=== PATIENT | female | born 1945 | race Caucasian/White ===

== ENCOUNTER → 2017-08-14 13:30 | Outpatient (CLI) | payer MEDICARE, SELFPAY ==
[2017-07-24 13:28] VITALS: TEMP 36.2
[2017-08-14 14:10] LABS: Add Manual Diff / Slide Review NO; Basophils Percent Auto 1.9 % (0-2); Eosinophils Percent Auto 4.3 % (2-4); Hematocrit 36.3 % (36-46); Hemoglobin 12.5 g/dL (12.0-16.0); Lymphocytes Percent Auto 24.3 % (25-40); Mean Corpuscular HGB Conc 34.5 % (30-36); Mean Corpuscular Volume 98.8 fL (80-100); Neutrophils Absolute Auto 1600 /uL (3000-5900); Neutrophils Percent Auto 59.5 % (50-75); Platelet Count 208 X10^3/uL (150-400); Red Blood Cell Count 3.67 X10^6/uL (4.0-5.2); Red Cell Distribution Width 13.8 % (11.6-14.8); White Blood Cell Count 2.7 X10^3/uL (4.5-11.0)
[2017-08-14 14:28] LABS: Alanine Aminotransferase 25 IU/L (9-52); Albumin 3.9 g/dL (3.5-5.0); Albumin Globulin Ratio 0.7 (1.0-2.8); Alkaline Phosphatase 50 U/L (38-126); Aspartate Aminotransferase 20 IU/L (14-36); BUN Creatinine Ratio 18.8 (6-22); Bilirubin Total 0.4 mg/dL (0.2-1.3); Calcium 10.3 mg/dL (8.4-10.2); Estimated Glomerular Filt Rate > 60.0 mL/min (>60); Globulin 5.5 g/dL (1.7-4.1); Glucose 104 mg/dL (80-110); HEMOLYSIS < 15 (0-50); Potassium 3.3 mmol/L (3.4-5.1); Sodium 141 mmol/L (137-145); Total Protein 9.4 g/dL (6.3-8.2)
[2017-08-20 15:25] LABS: Abnormal Protein Band 1 3.3 g/dL (NONE DETECTED); Albumin 3.8 g/dL (3.8-4.8); Alpha 1 Globulin 0.3 g/dL (0.2-0.3); Alpha 2 Globulin 0.6 g/dL (0.5-0.9); Beta 1 Globulin 0.3 g/dL (0.4-0.6); Gamma Globulin 3.5 g/dL (0.8-1.7); Protein, Total 8.7 g/dL (6.1-8.1)
[2017-08-21 13:00] LABS: Free Kappa Light Chain 13.6 mg/L (3.3-19.4)
[2017-08-26 14:13] LABS: Beta-2-Microglobulin 2.45 mg/L (< 2.52)
== END ==
PROVIDERS: Family Provider Family Medicine; PCP Family Medicine; Visit Provider Internal Medicine Hematology & Oncology
DX: C90.11 Plasma cell leukemia in remission (principal)
CPT/HCPCS: 80053; 82232; 83883; 84155; 84165; 85025

== ENCOUNTER → 2017-09-05 10:24 | Outpatient (CLI) | payer MEDICARE, SELFPAY ==
--- NOTE | 2017-09-05 10:26 | DI.RAD.S_ITS ---
PROCEDURE: XR BONE SURVEY INDICATIONS: 72 year-old female with multiple myeloma. TECHNIQUE: Multiple views obtained of various bony structures as described below. COMPARISON: [facility], , XR BONE SURVEY COMP, 08/27/2016, 19:54. FINDINGS: Skull (lateral): Several geographic lucent lesions near the vertex and posterior parietal calvarium appear decreased in numbers. Thoracic spine (AP, lateral): No suspicious bony lesions. Nonacute T6 vertebral body compression fracture is unchanged, with 74% height loss. There is new T10 vertebral body compression fracture, with 52% height loss. Nonacute healed lateral left eighth fracture is now apparent, with bridging bony callus. Lumbar spine (AP, lateral): No suspicious bony lesions. No vertebral body compression fractures. There is multilevel lumbar spine disc degeneration as before, with mild dextroscoliosis. Cholecystectomy clips are present. Pelvis (AP): No suspicious bony lesions. No fractures. Soft tissue heterotopic ossification is again noted adjacent to the left lesser trochanter, consistent with remote left iliopsoas tendon injury. Right and left humeri (AP): No suspicious bony lesions. No fractures. Overlying soft tissues appear unremarkable. Right and left femurs (AP): Several geographic lucent lesions in the femoral shaft with endosteal scalloping do not appear significantly changed. No new suspicious bony lesions. No fractures. Overlying soft tissues appear unremarkable. IMPRESSION: 1. The nonacute T6 vertebral body compression fracture is unchanged. New but nonacute T10 vertebral body compression fracture, with moderate height loss. Additional nonacute lateral left eighth rib fracture also appears new. 2. Several lucent lesions within the right femoral shaft appear unchanged in overall numbers and sizes. Additional geographic lucent lesions in the calvarium appear decreased in number and conspicuity. 3. Soft tissue heterotopic ossification adjacent to the left lesser trochanter, consistent with remote left iliopsoas tendon injury. Dictated by: Rajinder Martinez M.D. on 09/05/2017 at 13:26 Approved by: Rajinder Martinez M.D. on 09/05/2017 at 13:35
--- NOTE | 2017-09-05 10:26 | DI.ECHO.S_ITS ---
[facility] +---------+ : : [address] : : : : [id number] : : : : Phone: [phone] Echocardiogram Report + + :Name: HOMA EPSTEIN Study Date: 09/05/2017 Height: 63 in : :[facility] Exam Location: [facility] Weight: 194 lb : : Gender: Female BSA: 1.9 m2 : :: 1945 Age: 72 yrs BP: 142/88 mmHg: :Reason For Study: MULTIPLE MYELOMA : : Performed By: Janel Nolasco : :Referring: MIRANDA POWER : + + Interpretation Summary 1. Upper limits of normal left ventricular size with normal wall thickness and an estimated EF of 45 to 50% 2. Normal right ventricular size and systolic function. 3. No evidence for significant valvular pathology Compared to the previous study of 2017, the EF appears improved. Procedure: A two-dimensional transthoracic echocardiogram with color flow and Doppler was performed. The study quality was technically adequate. Comparison is made with the echocardiogram of 08/22/2016. The patient was in normal sinus rhythm during the exam. Left Ventricle: The left ventricle is borderline dilated. Left ventricular wall thickness is normal. The ejection fraction is estimated to be 45-50%. Right Ventricle: The right ventricle is normal in size and function. Atria: Both atria are normal in size. There is no Doppler evidence for an interatrial shunt. Mitral Valve: The mitral valve leaflets appear thickened, but open well. There is trace mitral regurgitation. Aortic Valve: The aortic valve is trileaflet. The aortic valve opens well. There is mild aortic valve sclerosis. There is trace aortic regurgitation. Tricuspid Valve: The tricuspid valve leaflets are thin and pliable. There is a trace or physiologic amount of tricuspid regurgitation. The right ventricular systolic pressure is estimated at 28 mmHg assuming a right atrial pressure of 3 mm Hg. Pulmonic Valve: The pulmonic valve is normal in structure and function. There is a trace or physiologic amount of pulmonic regurgitation. Great Vessels: The aortic root is normal size. The ascending aorta is mildly enlarged. The aortic arch is mildly enlarged. The pulmonary artery is normal size. The IVC is of normal diameter and collapses greater than 50% with a sniff. This suggests a low right atrial pressure of 3 mm Hg. Pericardium/ Pleura There is no pericardial effusion. There is no pleural effusion. MMode/2D Measurements & Calculations LVIDd: 5.3 cm LVOT diam: 2.1 cm LVIDs: 3.5 cm Ao root diam: 3.4 cm FS: 34.3 % asc Aorta Diam: 3.8 cm EPSS: 0.66 cm Ao Arch Diam (Prox Trans): 3.1 cm IVSd: 0.76 cm LVPWd: 0.74 cm LV samuels. diameter/BSA (cm/m^2): 2.8 LV sys. diameter/BSA (cm/m^2): 1.8 LA A2 area: 20.6 cm2 RA long axis: 4.4 cm LA A4 area: 14.0 cm2 RA area: 15.6 cm2 LA length (vol): 4.8 cm RA vol: 47.7 ml LA vol: 51.0 ml RA : 25.0 ml/m2 LA vol index: 26.7 ml/m2 IVC diam: 1.4 cm RVD1 (basal): 3.2 cm LVAd ap4: 21.6 cm2 TAPSE: 2.0 cm LVAs ap4: 27.4 cm2 LVLs ap4: 6.5 cm LVAd ap2: 25.3 cm2 LVLd ap2: 7.2 cm Doppler Measurements & Calculations Ao V2 max: 136.5 cm/sec LVOT Max Gael: 86.3 cm/sec Ao V2 mean: 103.1 cm/sec LV V1 max P.0 mmHg Ao max P.5 mmHg LV V1 VTI: 14.8 cm Ao mean P.5 mmHg KASANDRA(I,D): 2.4 cm2 Ao V2 VTI: 22.3 cm KASANDRA(V,D): 2.3 cm2 sev ratio: 0.66 KASANDRA indexed to BSA (cm^2/m^2): 1.3 MV E max gael: 38.1 cm/sec TR max gael: 246.8 cm/sec MV A max gael: 81.2 cm/sec TR max P.4 mmHg MV E/A: 0.47 PA V2 max: 75.8 cm/sec Med Peak E' Gael: 3.6 cm/sec PA V2 mean: 49.2 cm/sec E/E' med: 10.4 PA mean P.1 mmHg Lat Peak E' Gael: 3.6 cm/sec E/E' lat: 10.4 E/e' average: 10.4 MV dec time: 0.25 sec Reading Physician:SERGE
[2017-09-05 12:24] LABS: Add Manual Diff / Slide Review NO; Basophils Percent Auto 2.4 % (0-2); Eosinophils Percent Auto 4.1 % (2-4); Hematocrit 36.2 % (36-46); Hemoglobin 12.5 g/dL (12.0-16.0); Mean Corpuscular HGB Conc 34.5 % (30-36); Mean Corpuscular Volume 98.6 fL (80-100); Monocytes Percent Auto 12.4 % (3-14); Neutrophils Absolute Auto 1700 /uL (3000-5900); Neutrophils Percent Auto 56.1 % (50-75); Platelet Count 230 X10^3/uL (150-400); Red Blood Cell Count 3.67 X10^6/uL (4.0-5.2); Red Cell Distribution Width 13.5 % (11.6-14.8)
== END ==
PROVIDERS: Family Provider Family Medicine; PCP Family Medicine; Visit Provider Internal Medicine Hematology & Oncology
DX: C90.00 Multiple myeloma not having achieved remission (principal); M48.54XA Collapsed vertebra, not elsewhere classified, thoracic region, initial encounter for fracture; S22.32XA Fracture of one rib, left side, initial encounter for closed fracture
CPT/HCPCS: 36415; 77075; 85025; 93306

== ENCOUNTER → 2017-09-05 12:07 | Outpatient (CLI) | payer MEDICARE, SELFPAY ==
--- NOTE | 2017-09-09 15:59 | PC.NURSE ---
Pt called reporting that while hospitalized at [facility] last year at the time of her initial multiple myeloma diagnosis.She had a reaction to a medication resulting in convulsive type reaction.Dictations from last year do not note this-she was transferred over to here for care after her hospitalization at [facility] for acute renal failure and initial treatment. Her recalls she was being prepped for an endoscopy and was given a medication that she reacted to .MS04/dilaudid and cyclobenzaprine are listed as allergies here.iI advised them to contact medical records for allergy or drug reaction info.if more complicated records are sent we could help to determine what occurred
== END ==
PROVIDERS: Family Provider Family Medicine; PCP Family Medicine; Visit Provider Internal Medicine Hematology & Oncology
DX: C90.00 Multiple myeloma not having achieved remission (principal)

== ENCOUNTER → 2017-10-01 13:18 | Outpatient (CLI) | payer MEDICARE, SELFPAY ==
[2017-10-01 13:41] LABS: Add Manual Diff / Slide Review NO; Basophils Percent Auto 0.4 % (0-2); Hematocrit 40.8 % (36-46); Hemoglobin 14.1 g/dL (12.0-16.0); Lymphocytes Percent Auto 18.8 % (25-40); Mean Corpuscular HGB Conc 34.6 % (30-36); Mean Corpuscular Hemoglobin 35.1 PG (26-34); Mean Corpuscular Volume 101.5 fL (80-100); Monocytes Percent Auto 15.3 % (3-14); Neutrophils Absolute Auto 2600 /uL (3000-5900); Neutrophils Percent Auto 59.5 % (50-75); Platelet Count 214 X10^3/uL (150-400); Red Blood Cell Count 4.02 X10^6/uL (4.0-5.2); Red Cell Distribution Width 13.8 % (11.6-14.8); White Blood Cell Count 4.3 X10^3/uL (4.5-11.0)
[2017-10-03 12:35] LABS: Free Kappa Light Chain 10.9 mg/L (3.3-19.4); Free Kappa/ Lambda Ratio 0.11 (0.26-1.65); Free Lambda 101.7 mg/L (5.7-26.3)
[2017-10-03 16:06] LABS: Immunoglobulin G, Quantitative 2376 mg/dL (694-1618)
[2017-10-04 13:18] LABS: Beta-2-Microglobulin 2.69 mg/L (< 2.52)
[2017-10-04 15:24] LABS: Abnormal Protein Band 1 1.8 g/dL (NONE DETECTED); Albumin 3.6 g/dL (3.8-4.8); Alpha 1 Globulin 0.3 g/dL (0.2-0.3); Alpha 2 Globulin 0.7 g/dL (0.5-0.9); Beta 1 Globulin 0.4 g/dL (0.4-0.6); Protein, Total 7.2 g/dL (6.1-8.1)
== END ==
PROVIDERS: Family Provider Family Medicine; PCP Family Medicine; Visit Provider Internal Medicine Hematology & Oncology
DX: C90.00 Multiple myeloma not having achieved remission (principal)
CPT/HCPCS: 36415; 82232; 82784; 83883; 84155; 84165; 85025

== ENCOUNTER → 2017-11-17 13:30 | Outpatient (CLI) | payer MEDICARE, SELFPAY ==
[2017-11-17 13:52] LABS: Add Manual Diff / Slide Review NO; Basophils Percent Auto 0.4 % (0-2); Eosinophils Percent Auto 0.6 % (2-4); Hematocrit 40.2 % (36-46); Hemoglobin 13.8 g/dL (12.0-16.0); Lymphocytes Percent Auto 7.9 % (25-40); Mean Corpuscular HGB Conc 34.3 % (30-36); Mean Corpuscular Hemoglobin 34.5 PG (26-34); Mean Corpuscular Volume 100.5 fL (80-100); Monocytes Percent Auto 14.2 % (3-14); Neutrophils Absolute Auto 6900 /uL (3000-5900); Neutrophils Percent Auto 76.9 % (50-75); Platelet Count 160 X10^3/uL (150-400); Red Cell Distribution Width 14.3 % (11.6-14.8)
[2017-11-17 14:08] LABS: Alanine Aminotransferase 28 IU/L (9-52); Albumin 3.9 g/dL (3.5-5.0); Albumin Globulin Ratio 1.3 (1.0-2.8); Alkaline Phosphatase 41 U/L (38-126); Aspartate Aminotransferase 21 IU/L (14-36); Bilirubin Total 0.6 mg/dL (0.2-1.3); Blood Urea Nitrogen 15 mg/dL (7-17); Calcium 10.3 mg/dL (8.4-10.2); Carbon Dioxide 23 mmol/L (22-32); Chloride 109 mmol/L (98-107); Estimated Glomerular Filt Rate > 60.0 mL/min (>60); Globulin 3.1 g/dL (1.7-4.1); Glucose 120 mg/dL (80-110); HEMOLYSIS < 15 (0-50); Potassium 3.1 mmol/L (3.4-5.1); Sodium 142 mmol/L (137-145)
--- NOTE | 2017-11-17 14:43 | PC.NURSE ---
Labs today. K+ low at 3.1, chloride slightly elevated at 109. Sees provider 11/25
[2017-11-19 14:10] LABS: Immunoglobulin G, Quantitative 1497 mg/dL (694-1618)
[2017-11-19 14:22] LABS: Free Kappa Light Chain 6.7 mg/L (3.3-19.4); Free Kappa/ Lambda Ratio 0.11 (0.26-1.65); Free Lambda 60.5 mg/L (5.7-26.3)
[2017-11-20 15:02] LABS: Abnormal Protein Band 1 1.1 g/dL (NONE DETECTED); Albumin 3.6 g/dL (3.8-4.8); Alpha 1 Globulin 0.3 g/dL (0.2-0.3); Alpha 2 Globulin 0.7 g/dL (0.5-0.9); Beta 1 Globulin 0.4 g/dL (0.4-0.6); Gamma Globulin 1.3 g/dL (0.8-1.7); Protein, Total 6.6 g/dL (6.1-8.1)
== END ==
PROVIDERS: Family Provider Family Medicine; PCP Family Medicine; Visit Provider Nurse Practitioner Gerontology
DX: C90.00 Multiple myeloma not having achieved remission (principal)
CPT/HCPCS: 36415; 80053; 82784; 83883; 84155; 84165; 85025

== ENCOUNTER → 2017-12-16 12:34 | Outpatient (CLI) | payer MEDICARE, SELFPAY ==
[2017-12-16 12:57] LABS: Add Manual Diff / Slide Review NO; Eosinophils Percent Auto 8.4 % (2-4); Lymphocytes Percent Auto 24.3 % (25-40); Mean Corpuscular Hemoglobin 34.3 PG (26-34); Mean Corpuscular Volume 100.8 fL (80-100); Monocytes Percent Auto 12.9 % (3-14); Neutrophils Absolute Auto 1500 /uL (3000-5900); Neutrophils Percent Auto 50.4 % (50-75); Platelet Count 189 X10^3/uL (150-400); Red Blood Cell Count 4.07 X10^6/uL (4.0-5.2); Red Cell Distribution Width 14.5 % (11.6-14.8)
[2017-12-16 13:08] LABS: Alanine Aminotransferase 35 IU/L (9-52); Albumin 3.9 g/dL (3.5-5.0); Alkaline Phosphatase 41 U/L (38-126); Aspartate Aminotransferase 32 IU/L (14-36); Bilirubin Total 0.6 mg/dL (0.2-1.3); Blood Urea Nitrogen 8 mg/dL (7-17); Calcium 10.8 mg/dL (8.4-10.2); Carbon Dioxide 29 mmol/L (22-32); Chloride 107 mmol/L (98-107); Estimated Glomerular Filt Rate > 60.0 mL/min (>60); Globulin 3.8 g/dL (1.7-4.1); Glucose 86 mg/dL (80-110); HEMOLYSIS < 15 (0-50); Potassium 3.7 mmol/L (3.4-5.1); Sodium 144 mmol/L (137-145); Total Protein 7.7 g/dL (6.3-8.2)
[2017-12-17 14:27] LABS: Free Kappa Light Chain 12.2 mg/L (3.3-19.4); Free Lambda 120.3 mg/L (5.7-26.3); Immunoglobulin G, Quantitative 2170 mg/dL (694-1618)
[2017-12-19 15:48] LABS: Abnormal Protein Band 1 1.5 g/dL (NONE DETECTED); Albumin 3.7 g/dL (3.8-4.8); Alpha 1 Globulin 0.3 g/dL (0.2-0.3); Alpha 2 Globulin 0.7 g/dL (0.5-0.9); Beta 1 Globulin 0.3 g/dL (0.4-0.6); Gamma Globulin 1.7 g/dL (0.8-1.7)
== END ==
PROVIDERS: Family Provider Family Medicine; PCP Family Medicine; Visit Provider Nurse Practitioner Gerontology
DX: C90.00 Multiple myeloma not having achieved remission (principal)
CPT/HCPCS: 36415; 80053; 82784; 83883; 84155; 84165; 85025

== ENCOUNTER → 2018-01-13 13:12 | Outpatient (CLI) | payer MEDICARE, SELFPAY ==
[2018-01-13 13:50] LABS: Add Manual Diff / Slide Review NO; Basophils Percent Auto 1.7 % (0-2); Eosinophils Percent Auto 8.5 % (2-4); Hematocrit 40.2 % (36-46); Hemoglobin 13.6 g/dL (12.0-16.0); Mean Corpuscular HGB Conc 33.8 % (30-36); Mean Corpuscular Hemoglobin 33.9 PG (26-34); Mean Corpuscular Volume 100.2 fL (80-100); Neutrophils Absolute Auto 1700 /uL (3000-5900); Neutrophils Percent Auto 51.8 % (50-75); Platelet Count 208 X10^3/uL (150-400); Red Blood Cell Count 4.01 X10^6/uL (4.0-5.2); Red Cell Distribution Width 14.2 % (11.6-14.8); White Blood Cell Count 3.3 X10^3/uL (4.5-11.0)
[2018-01-13 14:06] LABS: Alanine Aminotransferase 46 IU/L (9-52); Albumin 3.9 g/dL (3.5-5.0); Albumin Globulin Ratio 1.1 (1.0-2.8); Alkaline Phosphatase 44 U/L (38-126); Aspartate Aminotransferase 35 IU/L (14-36); BUN Creatinine Ratio 15.7 (6-22); Bilirubin Total 0.8 mg/dL (0.2-1.3); Blood Urea Nitrogen 11 mg/dL (7-17); Calcium 10.9 mg/dL (8.4-10.2); Carbon Dioxide 30 mmol/L (22-32); Chloride 105 mmol/L (98-107); Estimated Glomerular Filt Rate > 60.0 mL/min (>60); Globulin 3.7 g/dL (1.7-4.1); Glucose 85 mg/dL (80-110); HEMOLYSIS < 15 (0-50); Potassium 3.2 mmol/L (3.4-5.1); Sodium 143 mmol/L (137-145); Total Protein 7.6 g/dL (6.3-8.2)
[2018-01-15 13:17] LABS: Immunoglobulin G, Quantitative 2144 mg/dL (694-1618)
[2018-01-15 14:20] LABS: Free Kappa Light Chain 11.3 mg/L (3.3-19.4); Free Kappa/ Lambda Ratio 0.08 (0.26-1.65); Free Lambda 138.7 mg/L (5.7-26.3)
[2018-01-16 16:55] LABS: Abnormal Protein Band 1 1.6 g/dL (NONE DETECTED); Albumin 3.7 g/dL (3.8-4.8); Alpha 1 Globulin 0.3 g/dL (0.2-0.3); Alpha 2 Globulin 0.7 g/dL (0.5-0.9); Beta 1 Globulin 0.4 g/dL (0.4-0.6); Gamma Globulin 1.8 g/dL (0.8-1.7); Protein, Total 7.1 g/dL (6.1-8.1)
== END ==
PROVIDERS: Family Provider Family Medicine; PCP Family Medicine
DX: C90.00 Multiple myeloma not having achieved remission (principal)
CPT/HCPCS: 36415; 80053; 82784; 83883; 84155; 84165; 85025

== ENCOUNTER → 2018-02-18 14:38 | Outpatient (CLI) | payer MEDICARE, SELFPAY ==
[2018-02-18 15:14] LABS: Add Manual Diff / Slide Review NO; Basophils Percent Auto 1.3 % (0-2); Hematocrit 39.8 % (36-46); Hemoglobin 13.7 g/dL (12.0-16.0); Lymphocytes Percent Auto 23.4 % (25-40); Mean Corpuscular HGB Conc 34.5 % (30-36); Mean Corpuscular Hemoglobin 34.2 PG (26-34); Mean Corpuscular Volume 99.2 fL (80-100); Monocytes Percent Auto 9.4 % (3-14); Neutrophils Absolute Auto 3100 /uL (3000-5900); Neutrophils Percent Auto 59.9 % (50-75); Platelet Count 217 X10^3/uL (150-400); Red Blood Cell Count 4.01 X10^6/uL (4.0-5.2); Red Cell Distribution Width 13.6 % (11.6-14.8); White Blood Cell Count 5.2 X10^3/uL (4.5-11.0)
[2018-02-18 16:46] LABS: Alanine Aminotransferase 41 IU/L (9-52); Albumin 3.9 g/dL (3.5-5.0); Alkaline Phosphatase 46 U/L (38-126); Aspartate Aminotransferase 28 IU/L (14-36); Bilirubin Total 0.7 mg/dL (0.2-1.3); Blood Urea Nitrogen 16 mg/dL (7-17); Calcium 11.1 mg/dL (8.4-10.2); Carbon Dioxide 26 mmol/L (22-32); Chloride 104 mmol/L (98-107); Estimated Glomerular Filt Rate > 60.0 mL/min (>60); Globulin 4.1 g/dL (1.7-4.1); Glucose 112 mg/dL (80-110); HEMOLYSIS < 15 (0-50); Potassium 3.7 mmol/L (3.4-5.1); Sodium 143 mmol/L (137-145)
[2018-02-24 15:35] LABS: Albumin 3.8 g/dL (3.8-4.8); Alpha 1 Globulin 0.3 g/dL (0.2-0.3); Alpha 2 Globulin 0.7 g/dL (0.5-0.9); Beta 1 Globulin 0.4 g/dL (0.4-0.6); Gamma Globulin 2.2 g/dL (0.8-1.7); Protein, Total 7.6 g/dL (6.1-8.1)
== END ==
PROVIDERS: Family Provider Family Medicine; PCP Family Medicine
DX: C90.00 Multiple myeloma not having achieved remission (principal)
CPT/HCPCS: 36415; 80053; 84155; 84165; 85025

== ENCOUNTER → 2018-06-10 11:26 | Outpatient (CLI) | payer MEDICARE, SELFPAY | PROVIDERS: Family Provider Family Medicine; PCP Family Medicine | DX: C90.00 Multiple myeloma not having achieved remission (principal) | CPT/HCPCS: 36415; 80053; 82784; 83883; 84155; 84165; 85025 ==

== ENCOUNTER → 2018-07-08 12:03 | Outpatient (CLI) | payer MEDICARE, SELFPAY ==
[2018-07-08 12:27] LABS: Add Manual Diff / Slide Review NO; Basophils Absolute Auto 200 /uL (0-100); Basophils Percent Auto 4.1 % (0-2); Eosinophils Absolute Auto 200 /uL (0-450); Eosinophils Percent Auto 3.9 % (2-4); Hematocrit 44.4 % (36-46); Lymphocytes Absolute Auto 1200 /uL (1100-4500); Lymphocytes Percent Auto 27.1 % (25-40); Mean Corpuscular HGB Conc 33.9 % (30-36); Mean Corpuscular Hemoglobin 34.4 PG (26-34); Mean Corpuscular Volume 101.7 fL (80-100); Monocytes Absolute Auto 600 /uL (0-900); Monocytes Percent Auto 13.6 % (3-14); Neutrophils Absolute Auto 2200 /uL (1500-7000); Neutrophils Percent Auto 51.3 % (50-75); Platelet Count 255 X10^3/uL (150-400); Red Blood Cell Count 4.37 X10^6/uL (4.0-5.2); Red Cell Distribution Width 14.5 % (11.6-14.8); White Blood Cell Count 4.3 X10^3/uL (4.5-11.0)
[2018-07-08 13:03] LABS: Alanine Aminotransferase 62 IU/L (9-52); Albumin 4.1 g/dL (3.5-5.0); Albumin Globulin Ratio 1.1 (1.0-2.8); Alkaline Phosphatase 47 U/L (38-126); Aspartate Aminotransferase 38 IU/L (14-36); Bilirubin Total 0.9 mg/dL (0.2-1.3); Blood Urea Nitrogen 12 mg/dL (7-17); Calcium 11.1 mg/dL (8.4-10.2); Carbon Dioxide 24 mmol/L (22-32); Chloride 106 mmol/L (98-107); Estimated Glomerular Filt Rate > 60.0 mL/min (>60); Globulin 3.9 g/dL (1.7-4.1); Glucose 91 mg/dL (80-110); Potassium 4.3 mmol/L (3.4-5.1); Sodium 140 mmol/L (137-145)
[2018-07-08 13:04] LABS: HEMOLYSIS 60 (0-50)
[2018-07-11 14:26] LABS: Abnormal Protein Band 1 1.6 g/dL (NONE DETECTED); Albumin 3.7 g/dL (3.8-4.8); Alpha 1 Globulin 0.3 g/dL (0.2-0.3); Alpha 2 Globulin 0.8 g/dL (0.5-0.9); Beta 1 Globulin 0.4 g/dL (0.4-0.6); Gamma Globulin 1.9 g/dL (0.8-1.7); Protein, Total 7.3 g/dL (6.1-8.1)
== END ==
PROVIDERS: Family Provider Family Medicine; PCP Family Medicine
DX: C90.00 Multiple myeloma not having achieved remission (principal)
CPT/HCPCS: 36415; 80053; 84155; 84165; 85025

== ENCOUNTER → 2019-07-28 10:45 | Outpatient (CLI) | payer MEDICARE, SELFPAY ==
[2019-07-29 02:06] LABS: COVID19 Sendout Not Detected (Not Detect)
== END ==
PROVIDERS: Family Provider Family Medicine; PCP Family Medicine; Visit Provider Family Medicine
DX: Z01.818 Encounter for other preprocedural examination (principal)
CPT/HCPCS: 87635

== ENCOUNTER 2019-08-02 10:44 | Day surgery (SDC) | payer MEDICARE, SELFPAY ==
[2019-08-02] VITALS (9 sets, daily range): BP systolic 143–155; BP diastolic 77–99; PULSE 72–89; RESP 11–23; TEMP 36.3–37.1; O2SAT 10–99; BMI 38.1
--- NOTE | 2019-08-02 | DI.RAD.S_ITS ---
PROCEDURE: XR CHEST 1V INDICATIONS: PORT A CATH TECHNIQUE: One view of the chest was acquired. COMPARISON: None. FINDINGS: Surgical changes and devices: A left-sided Port-A-Cath central line is identified with the tip overlying the mid superior vena cava. Lungs and pleura: A heterogeneous area of increased density overlying the lateral margin of the left midlung extends beyond the thoracic cavity and probably is overlying the patient. No distinctive or definitive area of pulmonary consolidation is evident. No effusion or pneumothorax is identified. Mediastinum: Mediastinal contours appear normal. Heart size is normal. There is aortic atherosclerosis. Bones and chest wall: No suspicious bony lesions. Overlying soft tissues appear unremarkable. IMPRESSION: No acute cardiopulmonary process is suspected. Dictated by: Tanner Beltran M.D. on 08/02/2019 at 16:09 Approved by: Tanner Beltran M.D. on 08/02/2019 at 16:10
[2019-08-02] MEDS: LACTATED RINGERS 1,000 ML 42 ML IV (10:57)
--- NOTE | 2019-08-02 12:53 | PM.HP.1 ---
History of Present Illness History of Present Illness Date Patient Seen: 08/02/19 Time Patient Seen: 12:30 Chief complaint: [id number] PORT-A-CATH PLACEMENT Narrative: The patient is a woman with multiple myeloma here for placement of a Port-A-Cath. Patient History Medical History Breast cancer (Acute ~2015) Flash pulmonary edema (Acute) Multiple myeloma in relapse (Acute) Family & Social History Social History: household members spouse Tobacco & Substance use: Smoking Status Never smoker alcohol intake never Substance Use Type does not use Meds Home Medications and Allergies Home Medications Medication Instructions Recorded Confirmed Type glucosamine sulfate [Glucosamine] 500 mg PO DAILY 10/28/17 08/02/19 History multivitamin 1 tab PO DAILY 03/04/18 08/02/19 History anastrozole 1 mg PO QDAY #90 tab 04/30/18 08/02/19 Rx loperamide-simethicone [Imodium 2 tab PRN PRN 05/20/18 08/02/19 History Multi-Symptom Relief] latanoprost 0.005 drp DAILY 06/17/18 08/02/19 History ondansetron HCl [Zofran] 8 mg PO BID PRN #60 tab 01/07/19 08/02/19 Rx potassium chloride 10 meq PO DAILY #30 cap 02/02/19 08/02/19 Rx dexamethasone See Rx Instructions .ROUTE 06/15/19 08/02/19 Rx .COMPLEX #60 tab omeprazole 40 mg PO DAILY 08/02/19 08/02/19 History Allergies Allergy/AdvReac Type Severity Reaction Status Date / Time technetium-99m Allergy Severe Anaphylaxis Verified 11/05/17 15:21 cyclobenzaprine Allergy Unknown Verified 09/16/17 14:28 [CYCLOBENZAPRINE] hydromorphone [HYDROMORPHONE] Allergy Unknown Verified 08/02/19 11:03 morphine [MORPHINE] AdvReac Unknown Verified 08/02/19 11:03 Review of Systems Review of Systems Narrative: Patient is reflux. She takes omeprazole which seems to control it well. She denies any heart problems except for an occasional stump that she feels. She says her father had all of his life and she is noted all of her hers. No chest pain no cough cold or asthma. No urinary tract infections. No seizures or blackouts. She has recently developed tremor. Exam Vital Signs (past 8 hours): - 08/02/19 11:08 Temperature 98.1 F Pulse Rate 89 Respiratory Rate 20 Blood Pressure 155/77 H Pulse Oximetry 95 Oxygen Delivery Method Room Air Narrative Exam Narrative: Cooperative in no apparent distress. No rashes on her chest. Her lungs are clear to auscultation no rales or rhonchi. Heart regular rate and rhythm no murmur gallop. She is alert and oriented x3. Speech rate and content are appropriate. Assessment & Plan Assessment & Plan narrative: Patient with multiple myeloma for Port-A-Cath. I have discussed the procedure and rationale with the patient. Risks of bleeding, infection which is ongoing risks, possibility of blood caught causing swelling or I pulmonary embolism, and lung collapse were all discussed with her. She appears to understand wishes to proceed.
--- NOTE | 2019-08-02 13:07 | PM.PREOP ---
Pre-operative Note COVID-19 COVID-19 status: Negative Result date/Date tested (Pos, Neg/Pending): 07/31/19 Interval Note History & Physical reviewed/Exam performed by Physician: Yes Changes to H&P: No
[2019-08-02] MEDS: CEFAZOLIN 2 GM/100 ML FROZ.PIGGY IV (13:10)
--- NOTE | 2019-08-02 13:39 | SUR.OPER ---
Supine on padded OR bed, head on donut pillow, arms padded and tucked at sides, legs uncrossed, safety belt at thigh, tape over blanket over lower legs . shoulder roll
[2019-08-02] MEDS: LIDOCAINE 1% 30 ML INJ (14:17)
[2019-08-02] MEDS: HEPARIN 5,000 UNIT, SODIUM CHLORIDE 0.9% 50 ML IV (14:18)
[2019-08-02] MEDS: IOPAMIDOL 15 ML VIAL INJ (14:19)
--- NOTE | 2019-08-02 15:43 | PM.OP.1 ---
Operative Date/Time/Diagnoses Date of procedure: 08/02/19 Time of procedure: 15:30 Pre-op diagnosis: Multiple myeloma Post-op diagnosis: same Procedure & Clinicians Procedure: Placement of left internal jugular Port-A-Cath and venogram. Same procedure as scheduled: No Indications: Venogram was not planned a was performed due to the intraoperative findings Surgeon: Ernie Li Click Yes if Unassisted: Yes Anesthesia Type: General Operative Notes Findings: Tip in the SVC. No pneumothorax Closure Type: primary Specimen(s): none sent Prosthetic devices, grafts, tissues, transplants, or devices: Port-A-Cath Applied: catheter Estimated Blood Loss (mL): 150 Blood products transfused: none Procedure in detail: The patient was placed supine on the operating room table and underwent general LMA anesthesia. She was prepped and draped in the usual fashion to place a left-sided line. A roll was placed between shoulders prior to prepping. Transverse incision was made beneath the left clavicle and carried down is subcutaneous tissues. A pocket was created inferior to the incision to hold the port. needle was inserted on 1st attempt into a vascular structure under the clavicle. When I a removed the syringe there was typical bleeding as in a vein. Guidewire was passed and the needle removed. The guidewire appeared to actually cross the midline and go up the opposite arm. After trying to manipulate the wire I inserted the dilator alone and was able to manipulate the wire into appropriate appearing position. There was no resistance to any of these maneuvers. I put the catheter together with the port and tapered it to appropriate length. The port was placed in the pocket. Dilator and introducer were passed over the guidewire while observing with fluoroscopy. There was no resistance. The Dilator was removed leaving the introducer in place. Despite the sealed and there was pulsatile backflow through the gasket from the introducer end. I decided to inject dye through the introducer and observe flow both superior and inferior. Unfortunately the images or inadvertently not saved and I could not review them. I decided rather than to continue with this unusual situation to remove the introducer and put the catheter into the neck . Pressure was held above and below the clavicle for full 5 minutes. There did not appear to be any expansion or hematoma or back bleeding. A small lily was made in the skin after using ultrasound to identify the internal jugular vein in its path. 22 gauge needle was inserted as a finer needle into the vein. The catheter was removed and there was no pulsatile backflow. Using this as a guide along with the ultrasound the needle for the placement of the Port-A-Cath was inserted into the internal jugular on 1st attempt. Guidewire was passed and the needle was removed leaving the guidewire in place. A tunnel was created between the infra clavicular pocket and the neck incision using the tunneling device. The catheter was passed from the pocket up to the neck incision. Using a dilator and introducer and observing under fluoroscopy I passed the dilator and introducer over the guidewire and removed the guidewire and dilator leaving the introducer in place. I then passed the catheter through the introducer under fluoroscopic visualization and peeled the introducer away leaving the catheter in place. I tapered it to appropriate length and connected it to the Port-A-Cath and could not aspirate or flush. There appeared to be kink at the neck. I tried to broaden the turn in the neck that after numerous attempts it became apparent that I could not reliably leave the catheter where was in the neck as sometimes it would kink in sometimes it would not. Therefore I created a new tunnel from the neck incision to the infra clavicular pocket and repacked the catheter from the neck down broadening out the sweep of the turn in the neck. This seemed to do the trick. I put the catheter end into the port, placed it in the pocket, and was able to aspirate and flush it without difficulty. The port was secured to the chest wall with interrupted 320 silk. It was aspirated and flushed with heparinized saline without difficulty. The subcu was closed the both incisions with 3 0 Vicryl and the skin was closed with a running 4 0 Vicryl subcuticular stitch on the chest wall an interrupted 4 0 Vicryl subcuticular stitches in the neck. Mastisol Steri-Strips and dressing were applied the patient was awakened extubated taken recovery area in good condition Complications: none Post-operative Condition: stable Disposition: PACU
[2019-08-02] MEDS: OXYCODONE IR 5 MG TABLET PO (15:56)
--- NOTE | 2019-08-02 17:30 | SUR.PHASEII ---
All discharge instructions gone over with patient and patient's daughter
== END 2019-08-02 17:35 | disposition home or self-care (01) ==
PROVIDERS: Family Provider Family Medicine; PCP Family Medicine; Referring Provider Specialist; Visit Provider Specialist
PROC: (CPT 36561; principal; 2019-08-02 12:00)
DX: C90.00 Multiple myeloma not having achieved remission (principal); Z45.2 Encounter for adjustment and management of vascular access device; E66.9 Obesity, unspecified; Z68.38 Body mass index [BMI] 38.0-38.9, adult
CPT/HCPCS: 36561; 71045; 76000; C1788; J0690; J1100; J1644; J2250; J2405; J2704; J3010

== ENCOUNTER → 2021-01-15 09:19 | Outpatient (CLI) | payer MEDICARE, SELFPAY ==
--- NOTE | 2021-01-15 09:22 | DI.RAD.S_ITS ---
PROCEDURE: FL CATHETER PATENCY COMPARISON: None. INDICATIONS: lack of blood return in port FINDINGS: Left chest is port with the tip seen in the junction of the SVC and left brachiocephalic vein. There is no acute kink seen in the catheter. Catheter appears continuous. Injection of Optiray -300 demonstrates exiting contrast material proximal to the tip of the catheter suggestive of fibrin sheath. Of note, there was no definite resistance to contrast injection at the time of the study. IMPRESSION: Patent appearance of the left chest port catheter however fibrin sheath at the distal tip as discussed above. Dictated by: Andrew Moeller M.D. on 01/15/2021 at 11:38 Approved by: Andrew Moeller M.D. on 01/15/2021 at 11:45
== END ==
PROVIDERS: Family Provider Family Medicine; PCP Family Medicine; Referring Provider Internal Medicine Hematology & Oncology; Visit Provider Internal Medicine Hematology & Oncology
DX: Z45.2 Encounter for adjustment and management of vascular access device (principal); C90.00 Multiple myeloma not having achieved remission
CPT/HCPCS: 76000